=== PATIENT | male | born 1990 | race Caucasian/White ===

== ENCOUNTER 2016-06-28 13:31 | Emergency (ER) | payer MEDICAID ==
[2016-06-28 13:41] VITALS: BP 124/80
[2016-06-28] MEDS ORDERED: LOPERAMIDE 2 MG CAPSULE PO STA (14:13)
[2016-06-28] MEDS ORDERED: ONDANSETRON ODT 4 MG TABLET TL STA (14:13)
[2016-06-28] MEDS ORDERED: ONDANSETRON ODT 4 MG TABLET ONE (14:16)
[2016-06-28] MEDS ORDERED: LOPERAMIDE 2 MG CAPSULE PO ONE (14:16)
--- NOTE | 2016-06-28 14:16 | ED Physician Documentation ---
PD HPI NVD - Stated complaint Stated Complaint: N/D/LIGHTHEADED - Chief complaint Chief Complaint: Abd Pain - History obtained from History obtained from: Patient - History of Present Illness Timing - onset: Other (Previously healthy 25-year-old gentleman with history of appendectomy developed relatively sudden onset illness today with nausea and profuse diarrhea but no significant pain or fevers. His was sick with diarrhea and vomiting a few days ago.) Review of Systems Constitutional: denies: Fever, Chills Cardiac: denies: Chest pain / pressure, Palpitations Respiratory: denies: Dyspnea, Cough GI: reports: Nausea. denies: Abdominal Pain, Vomiting, Diarrhea, Bloody / black stool PD PAST MEDICAL HISTORY - Past Surgical History Past Surgical History: Yes General: Appendectomy - Present Medications Home Medications: Ambulatory Orders Medication Instructions Recorded Confirmed Ondansetron HCl [Zofran] 4 mg PO Q6H PRN #10 tablet 06/28/16 - Allergies Allergies/Adverse Reactions: Allergies Allergy/AdvReac Type Severity Reaction Status Date / Time No Known Drug Allergies Allergy Verified 04/29/15 12:48 - Social History Does the pt smoke?: No Smoking Status: Never smoker Does the pt drink ETOH?: No Does the pt have substance abuse?: No - Immunizations Immunizations are current?: Yes - POLST Patient has POLST: No PD ED PE NORMAL - Vitals Vital signs reviewed: Yes (normal) - General General: Alert and oriented X 3, No acute distress - HEENT HEENT: Moist mucous membranes, Pharynx benign - Cardiac Cardiac: RRR, No murmur - Respiratory Respiratory: No respiratory distress, Clear bilaterally - Abdomen Abdomen: Normal bowel sounds, Soft, Non tender - Neuro Neuro: Alert and oriented X 3, Normal speech - Psych Psych: Normal mood, Normal affect Results - Vitals Vitals: Vital Signs - 24 hr 06/28/16 13:39 Temperature 36.7 C Heart Rate 66 Respiratory 18 Rate Blood Pressure 124/80 O2 Saturation 99 Oxygen O2 Source Room air PD MEDICAL DECISION MAKING - ED course ED course: He presents with an illness consistent with viral gastroenteritis. He didn't want to do IV fluids, he doesn't seem dehydrated at this point. We'll treat him conservatively with Zofran and Imodium and close followup if not improving. Departure - Departure Disposition: 01 Home, Self Care Clinical Impression: Gastroenteritis Condition: Good Record reviewed to determine appropriate education?: Yes Instructions: ED Gastroenteritis Viral Prescriptions: Ondansetron HCl [Zofran] 4 mg PO Q6H PRN #10 tablet PRN Reason: Nausea / Vomiting Comments: Wash your hands well, as discussed your contagious. Also as discussed expect you better within the next 24 hours, return this time tomorrow if not, sooner if worse. Forms: Activity restrictions
== END 2016-06-28 14:25 | disposition home or self-care (01) ==
LOC: ED 13:31
DX: K52.9 Noninfective gastroenteritis and colitis, unspecified (principal)
CPT/HCPCS: 99283

== ENCOUNTER 2016-09-30 20:21 | Emergency (ER) | payer MEDICAID ==
[2016-09-30 20:29] VITALS: BP 121/82
--- NOTE | 2016-09-30 20:52 | ED Physician Documentation ---
PD HPI URI - Stated complaint Stated Complaint: COUGH - Chief complaint Chief Complaint: General - History obtained from History obtained from: Patient - History of Present Illness Timing - onset: How many weeks ago (1) Timing details: Gradual onset, Still present Associated symptoms: Chills, Productive cough. No: Sweats, Ear pain, Nasal congestion, Rhinorrhea Contributing factors: No: Sick contact, Travel, Immunocompromised Similar symptoms before: Has not had sx before Recently seen: Not recently seen - Additional information Additional information: Patient is a 26 year old male with no significant past medical history who is presenting to the emergency department for cough for the last week. Patient states that it has been going on for the last week and today he had some post tussive emesis. Patient's partner states that he felt a little warm, but otherwise denies any fevers or other symptoms. Review of Systems Constitutional: denies: Fever, Chills Eyes: denies: Loss of vision, Decreased vision Ears: denies: Ear pain, Drainage/discharge, Tinnitus/ringing, Foreign body Nose: denies: Rhinorrhea / runny nose, Congestion, Sinus pressure / pain Throat: denies: Dental pain / toothache, Sore throat Cardiac: denies: Chest pain / pressure, Palpitations Respiratory: reports: Cough. denies: Wheezing GI: denies: Abdominal Pain, Nausea, Vomiting Skin: denies: Rash, Lesions Musculoskeletal: denies: Neck pain, Back pain, Extremity pain Neurologic: denies: Generalized weakness, Focal weakness Immunocompromised: denies: Immunocompromised PD PAST MEDICAL HISTORY - Past Medical History Past Medical History: No - Past Surgical History Past Surgical History: Yes General: Appendectomy - Present Medications Home Medications: Ambulatory Orders Medication Instructions Recorded Confirmed Ondansetron HCl [Zofran] 4 mg PO Q6H PRN #10 tablet 06/28/16 Benzonatate [Tessalon Perle] 100 mg PO TID #20 capsule 09/30/16 guaiFENesin/CODEINE [Robitussin AC] 10 ml PO Q6H #120 ml 09/30/16 - Allergies Allergies/Adverse Reactions: Allergies Allergy/AdvReac Type Severity Reaction Status Date / Time No Known Drug Allergies Allergy Verified 09/30/16 20:29 - Social History Does the pt smoke?: No Smoking Status: Never smoker Does the pt drink ETOH?: No Does the pt have substance abuse?: No - Immunizations Immunizations are current?: Yes - POLST Patient has POLST: No PD ED PE NORMAL - Vitals Vital signs reviewed: Yes - General General: Alert and oriented X 3, No acute distress, Well developed/nourished - HEENT HEENT: Atraumatic, PERRL, Ears normal, Moist mucous membranes, Pharynx benign - Neck Neck: Supple, no meningeal sign - Cardiac Cardiac: RRR, No murmur - Respiratory Respiratory: No respiratory distress, Clear bilaterally - Abdomen Abdomen: Soft, Non tender, Non distended - Derm Derm: Normal color, Warm and dry, No rash - Extremities Extremities: No deformity, No tenderness to palpate, Normal ROM s pain, No edema - Neuro Neuro: Alert and oriented X 3, No motor deficit, No sensory deficit, Normal speech - Psych Psych: Normal mood, Normal affect Results - Vitals Vitals: Vital Signs - 24 hr 09/30/16 20:27 Temperature 36.5 C Heart Rate 74 Respiratory 14 Rate Blood Pressure 121/82 H O2 Saturation 100 Oxygen O2 Source Room air - Rads (name of study) chest x-ray Radiology: Final report received (no acute disease process) PD MEDICAL DECISION MAKING - ED course Complexity details: reviewed old records, reviewed results, re-evaluated patient , considered differential, d/w patient, d/w family ED course: Patient was seen and examined at bedside. Patient's vital signs were within normal limits. Patient was sent for imaging. when patient returned the results were reviewed. there were no abnormalities. Patient was treated with robitussin and was stable for discharge with outpatient follow up. Departure - Departure Disposition: 01 Home, Self Care Clinical Impression: Cough Condition: Good Instructions: ED Viral Syndrome Follow-Up: Shamar Herron MD [Primary Care Provider] - Prescriptions: guaiFENesin/CODEINE [Robitussin AC] 10 ml PO Q6H #120 ml Benzonatate [Tessalon Perle] 100 mg PO TID #20 capsule Comments: Your diagnostics today were within normal limits. your symptoms are likely viral in nature and should be self limited. You should take the robitussin at night, and the tessalon during the day. If you take the robitussin you should not take it with alcohol or any other depressants. You should follow up with your pmd if your symptoms persist. You may return to the emergency department at any time for new, worsening or uncontrollable symptoms. Discharge Date/Time: 09/30/16 21:56
--- NOTE | 2016-09-30 21:22 | XRAY Preliminary Report ---
Exam: XR Chest 1 View IMPRESSION: Negative chest [facility] SITE ID: [id number]
--- NOTE | 2016-09-30 21:25 | XRAY Report ---
EXAM: CHEST RADIOGRAPHY EXAM DATE: 09/30/2016 09:03 PM. CLINICAL HISTORY: Persistent cough. COMPARISON: None. TECHNIQUE: 1 view. FINDINGS: Lungs/Pleura: No focal opacities evident. No pleural effusion. No pneumothorax. Mediastinum: Within exam limitations, cardiomediastinal contour is normal. Other: None. IMPRESSION: Negative chest [facility] Referring Provider Line: [phone] SITE ID: [id number]
[2016-09-30] MEDS ORDERED: guaiFENesin/CODEINE 5 ML UDC PO STA (21:44)
[2016-09-30] MEDS ORDERED: guaiFENesin/CODEINE 5 ML UDC ONE (21:50)
== END 2016-09-30 21:56 | disposition home or self-care (01) ==
LOC: ED 20:21
DX: R05 Cough (principal)
CPT/HCPCS: 71010; 99283; A9270

== ENCOUNTER 2016-10-13 15:31 | Emergency (ER) | payer MEDICAID ==
--- NOTE | 2016-10-13 17:10 | ED Physician Documentation ---
PD HPI NVD - Stated complaint Stated Complaint: VOM/NAUSEA - Chief complaint Chief Complaint: Abd Pain - History obtained from History obtained from: Patient - History of Present Illness Timing - onset: Other (Cough for 4 weeks, frequently with posttussive emesis with increasing production of yellow sputum but no shortness of breath or fevers. No sick contacts or recent travel. Last tetanus is unknown.) Review of Systems Constitutional: denies: Fever, Chills Throat: denies: Dental pain / toothache, Sore throat Cardiac: denies: Chest pain / pressure, Palpitations Respiratory: reports: Cough. denies: Dyspnea GI: reports: Vomiting. denies: Abdominal Pain, Diarrhea PD PAST MEDICAL HISTORY - Past Surgical History Past Surgical History: Yes General: Appendectomy - Present Medications Home Medications: Ambulatory Orders Medication Instructions Recorded Confirmed Ondansetron HCl [Zofran] 4 mg PO Q6H PRN #10 tablet 06/28/16 Benzonatate [Tessalon Perle] 100 mg PO TID #20 capsule 09/30/16 guaiFENesin/CODEINE [Robitussin AC] 10 ml PO Q6H #120 ml 09/30/16 Azithromycin [Zithromax] 250 mg PO DAILY #6 tablet 10/13/16 Hydrocodone Bit/Homatrop Me-Br 1 each PO Q6H PRN #20 tablet 10/13/16 [Hydrocod-Homatrop 5-1.5 mg Tab] - Allergies Allergies/Adverse Reactions: Allergies Allergy/AdvReac Type Severity Reaction Status Date / Time No Known Drug Allergies Allergy Verified 09/30/16 20:29 - Social History Does the pt smoke?: No Smoking Status: Never smoker Does the pt drink ETOH?: No Does the pt have substance abuse?: No - Immunizations Immunizations are current?: Yes - POLST Patient has POLST: No PD ED PE NORMAL - Vitals Vital signs reviewed: Yes - General General: Alert and oriented X 3, No acute distress - HEENT HEENT: PERRL, EOMI - Neck Neck: Supple, no meningeal sign, No bony TTP - Cardiac Cardiac: RRR, No murmur - Respiratory Respiratory: No respiratory distress, Clear bilaterally - Abdomen Abdomen: Non tender - Neuro Neuro: Alert and oriented X 3, Normal speech - Psych Psych: Normal mood, Normal affect Results - Vitals Vitals: Vital Signs - 24 hr 10/13/16 15:41 Temperature 36.6 C Heart Rate 77 Respiratory 18 Rate Blood Pressure 127/84 H O2 Saturation 99 Oxygen O2 Source Room air PD MEDICAL DECISION MAKING - ED course ED course: Long-standing posttussive emesis with recent negative chest x-ray, could be consistent with pertussis, will test and treat. Departure - Departure Disposition: 01 Home, Self Care Clinical Impression: Bronchitis Condition: Good Record reviewed to determine appropriate education?: Yes Instructions: Bronchitis Acute Dc Follow-Up: [facility] [Provider Group] Prescriptions: Hydrocodone Bit/Homatrop Me-Br [Hydrocod-Homatrop 5-1.5 mg Tab] 1 each PO Q6H PRN #20 tablet PRN Reason: Cough Azithromycin [Zithromax] 250 mg PO DAILY #6 tablet Forms: Activity restrictions
[2016-10-13 17:22] VITALS: BP 232/80
[2016-10-15 15:12] LABS: B. PARAPERTUSSIS DNA NOT DETECTED (()); B. PERTUSSIS DNA NOT DETECTED (())
== END 2016-10-13 17:23 | disposition home or self-care (01) ==
LOC: ED 15:31
DX: J40 Bronchitis, not specified as acute or chronic (principal); R11.10 Vomiting, unspecified
CPT/HCPCS: 87801; 99283